=== PATIENT | male | born 1975 | race Caucasian/White ===

== ENCOUNTER 2022-01-31 01:04 | Day surgery (SDC) | payer OTHER, SELFPAY ==
[2022-01-20 12:32] VITALS: BMI 26.1
[2022-01-31 07:45] VITALS: BP 133/91; PULSE 70; RESP 20; TEMP 36.3; O2SAT 99
[2022-01-31] MEDS: LACTATED RINGERS 1,000 ML 150 ML IV CONT (07:58)
--- NOTE | 2022-01-31 08:10 | WPDANESEPPF ---
Anes - Initial Pre Proc Eval Procedure: Operation Date: 01/31/22 09:00 Proposed Procedures p Esophagogastroduodenoscopy & Screening Colonoscopy - Mic Lew MD Date/Time: 01/31/22 08:10 Surgeon: Mic Lew MD Pre Op Diagnosis: neoplasm screening, GERD Patient Data Age: 46 Gender: M Height: 1.96 m Weight: 95.5 kg Last Vital Signs Temp 36.3 C L 01/31/22 07:45 Pulse 70 01/31/22 07:45 Resp 20 01/31/22 07:45 BP 133/91 H 01/31/22 07:45 Pulse Ox 99 01/31/22 07:45 Allergies Allergy/AdvReac Type Severity Reaction Status Date / Time No Known Allergies Allergy Unverified 01/31/22 07:44 Home Medications Medication Instructions Recorded Confirmed Type omeprazole 40 mg capsule,delayed 40 mg PO DAILY 12/06/21 01/20/22 History release rosuvastatin 20 mg tablet 20 mg PO DAILY 12/06/21 01/20/22 History cholecalciferol (vitamin D3) 25 mcg PO DAILY 01/20/22 01/20/22 History [Vitamin D3] Patient hx anesthesia problems: none Family hx anesthesia problems: none Results Review: All pre-operative results and documents have been reviewed as part of the pre-operative evaluation. [facility] Past Medical History Medical History HLD (hyperlipidemia) Tobacco dependence Social History Social History Smoking packs per day: 1 Smoking cigarettes per day: 20.0 Smoking status: Current every day smoker Tobacco type: cigarettes Alcohol intake: current Alcohol use details: Socially Substance use: never Living arrangements: with family Spiritual care concerns: No Anes - Eval Final PreProcedure Day of Procedure 01/31/22 08:10 Patient weight: normal Heart: regular rate and rhythm Lungs: clear to auscultation Airway: Mallampati scale class 1 Neurological: alert and oriented Last oral intake: >/= 8 hours ASA classification: II Emergent: no Anesthetic plan: proceed Anesthesia type and monitoring: general GIVS and standard monitoring Results Review: All pre-operative results and documents have been reviewed as part of the pre-operative evaluation. Informed Consent: The patient's anesthetic plan and its attendant risks and benefits were discussed with the patient/family/POA. Questions were solicited and answers provided to the satisfaction of the patient/family/POA.
--- NOTE | 2022-01-31 08:24 | P.CONGI_ITS ---
Assessment and Plan Assessment and plan (1) Encounter for screening colonoscopy: Code(s): Z12.11 - Encounter for screening for malignant neoplasm of colon Status: Acute Assessment and Plan: Patient presents today for screening colonoscopy. He appears to be at average risk for colon polyps. Further recommendations will be given after colonoscopy. (2) GERD (gastroesophageal reflux disease): Code(s): K21.9 - Gastro-esophageal reflux disease without esophagitis Status: Acute Assessment and Plan: Patient with longstanding history of heartburn and acid reflux disease. Currently well controlled on omeprazole 40mg p.o. daily. Plan to continue this as well as anti-reflux measures. EGD is to be performed for screening as for evaluation to exclude organic disease. GI Consult Note Consult date/time: 01/31/22 08:24 HPI: Kurt Pineda is a 46 year old male Presents for colonoscopy and EGD. Patient desires neoplasia screening because of his age. Current weight appetite bowel movements are normal. He has no family history of colon or rectal disease. Patient denies any bleeding presents today for screening colonoscopy. Patient has a long history of heartburn for many years. He has notices after eating almost all foods he will get heartburn. For the last 2-3 years he has taken omeprazole on a daily basis with prompt resolution of pain. He notices if he misses a dose that he will develop substernal heartburn and discomfort. He denies any dysphagia. He has had no bleeding. His family history is noncontrib utory. He presents today for EGD because of ongoing heartburn requiring PPI therapy. Review of Systems Review of Systems: All systems reviewed & are unremarkable except as noted in HPI and below PMFSH Past Medical History Medical History HLD (hyperlipidemia) Tobacco dependence Social History Social History Smoking packs per day: 1 Smoking cigarettes per day: 20.0 Smoking status: Current every day smoker Tobacco type: cigarettes Alcohol intake: current Alcohol use details: Socially Substance use: never Living arrangements: with family Spiritual care concerns: No Meds Home Medications and Allergies Home Medications Medication Instructions Recorded Confirmed Type omeprazole 40 mg capsule,delayed 40 mg PO DAILY 12/06/21 01/20/22 History release rosuvastatin 20 mg tablet 20 mg PO DAILY 12/06/21 01/20/22 History cholecalciferol (vitamin D3) 25 mcg PO DAILY 01/20/22 01/20/22 History [Vitamin D3] Allergies Allergy/AdvReac Type Severity Reaction Status Date / Time No Known Allergies Allergy Unverified 01/31/22 07:44 Vital Signs Vital Signs - 24 hr 01/31/22 07:45 Temperature 97.3 F L Pulse Rate 70 Respiratory Rate 20 Blood Pressure 133/91 H Pulse Oximetry 99 Exam Narrative: Physical exam reveals patient to be alert. Vital signs stable. HEENT exam is unremarkable. Patient is anicteric. Lungs are clear to auscultation and percussion. Heart is without murmur or extra sounds. Abdominal exam bowel sounds are present soft nontender with no organomegaly. Digital external rectal exam is normal.
[2022-01-31] MEDS: BENZOCAINE (*SP) 60 ML SPRAY CAN (HURRICAINE) 1 SPRAY MUCOUS MEM (09:11)
--- NOTE | 2022-01-31 09:21 | SUR.OPER ---
EGD ended at 916. Colonoscopy started at 920.
[2022-01-31 09:33] VITALS: BP 115/74; PULSE 65; RESP 13; O2SAT 98
[2022-01-31 09:43] VITALS: BP 111/79; PULSE 70; RESP 20; O2SAT 100
[2022-01-31 09:53] VITALS: BP 118/90; PULSE 65; RESP 17; O2SAT 100
== END 2022-01-31 09:58 | disposition home or self-care (01) ==
PROVIDERS: PCP Student in an Organized Health Care Education/Training Program; Visit Provider Internal Medicine Gastroenterology
PROC: 0DJ08ZZ Inspection of Upper Intestinal Tract, Via Natural or Artificial Opening Endoscopic (ICD-10-PCS; CPT 43235; principal; 2022-01-31 09:00)
DX: Z12.11 Encounter for screening for malignant neoplasm of colon (principal); D12.3 Benign neoplasm of transverse colon; K63.5 Polyp of colon; K64.8 Other hemorrhoids; E78.5 Hyperlipidemia, unspecified; F17.210 Nicotine dependence, cigarettes, uncomplicated
CPT/HCPCS: 45385; 43235; 88305; J2001; J2704; J7120